=== PATIENT | male | born 1955 | race Caucasian/White ===

== ENCOUNTER → 2021-09-17 17:16 | Outpatient (CLI) | payer OTHER, SELFPAY ==
[2021-09-17 18:28] LABS: Hemoglobin A1C% w Est Avg Glu 8.8 % (4.0-6.0)
== END ==
PROVIDERS: PCP Family Medicine; Referring Provider Family Medicine; Visit Provider Family Medicine
DX: E78.2 Mixed hyperlipidemia (principal); E11.9 Type 2 diabetes mellitus without complications
CPT/HCPCS: 36415; 83036

== ENCOUNTER → 2022-02-21 12:35 | Outpatient (CLI) | payer OTHER, SELFPAY ==
[2022-02-21 13:36] LABS: Hemoglobin A1C% w Est Avg Glu 9.2 % (4.0-6.0)
[2022-02-21 13:41] LABS: Alanine Aminotransferase 23 IU/L (<50); Albumin 4.6 g/dL (3.5-5.0); Albumin Globulin Ratio 1.8 (1.0-2.8); Alkaline Phosphatase 68 U/L (38-126); Aspartate Aminotransferase 27 IU/L (17-59); BUN Creatinine Ratio 28.3 (6-22); Bilirubin Total 0.3 mg/dL (0.2-1.3); Blood Urea Nitrogen 17 mg/dL (9-20); Calcium 8.9 mg/dL (8.4-10.2); Carbon Dioxide 29 mmol/L (22-32); Chloride 101 mmol/L (98-107); Cholesterol 120 mg/dL (140-199); Estimated Glomerular Filt Rate > 60 mL/min (>60); Globulin 2.6 g/dL (1.7-4.1); Glucose 163 mg/dL (80-110); HDL Cholesterol 52 mg/dL (40-60); HEMOLYSIS < 15 (0-50); LDL Cholesterol Calculated 40 mg/dL (<100); Sodium 138 mmol/L (137-145); Total Protein 7.2 g/dL (6.3-8.2); Triglycerides 141 mg/dL (35-150)
== END ==
PROVIDERS: PCP Family Medicine; Referring Provider Family Medicine; Visit Provider Family Medicine
DX: E11.9 Type 2 diabetes mellitus without complications (principal); E78.5 Hyperlipidemia, unspecified; I10 Essential (primary) hypertension
CPT/HCPCS: 36415; 80053; 80061; 83036

== ENCOUNTER → 2022-06-02 10:20 | Outpatient (CLI) | payer MEDICARE, OTHER, SELFPAY ==
[2022-06-02 13:57] LABS: Prostate Specific Antigen Scrn 1.68 ng/mL (0.1-4.0)
[2022-06-02 15:06] LABS: Creatinine Urine Random 58.9 mg/dL
[2022-06-02 15:10] LABS: Microalbumi Creatinin Ratio Ur 25.4 ug/mg CR (<30); Microalbumin Urine Random 1.5 mg/dL (0-1.6)
== END ==
PROVIDERS: PCP Family Medicine; Referring Provider Family Medicine; Visit Provider Family Medicine
DX: E11.9 Type 2 diabetes mellitus without complications (principal); Z12.5 Encounter for screening for malignant neoplasm of prostate; I10 Essential (primary) hypertension; E78.2 Mixed hyperlipidemia
CPT/HCPCS: 36415; 82043; 82570; 83036; G0103

== ENCOUNTER → 2022-08-30 07:02 | Outpatient (CLI) | payer MEDICARE, SELFPAY ==
[2022-08-30 07:53] LABS: Hemoglobin A1C% w Est Avg Glu 8.4 % (4.0-6.0)
[2022-08-30 08:06] LABS: Alanine Aminotransferase 24 IU/L (<50); Albumin 4.6 g/dL (3.5-5.0); Albumin Globulin Ratio 1.8 (1.0-2.8); Alkaline Phosphatase 68 U/L (38-126); Aspartate Aminotransferase 22 IU/L (17-59); Bilirubin Total 0.4 mg/dL (0.2-1.3); Blood Urea Nitrogen 20 mg/dL (9-20); Calcium 8.8 mg/dL (8.4-10.2); Carbon Dioxide 27 mmol/L (22-32); Chloride 100 mmol/L (98-107); Cholesterol 102 mg/dL (140-199); Estimated Glomerular Filt Rate > 60 mL/min (>60); Globulin 2.6 g/dL (1.7-4.1); Glucose 181 mg/dL (80-110); HDL Cholesterol 44 mg/dL (40-60); HEMOLYSIS < 15 (0-50); LDL Cholesterol Calculated 39 mg/dL (<100); Sodium 138 mmol/L (137-145); Total Protein 7.2 g/dL (6.3-8.2); Triglycerides 97 mg/dL (35-150)
[2022-08-30 08:41] LABS: Creatinine Urine Random 59.5 mg/dL
[2022-08-30 08:45] LABS: Microalbumi Creatinin Ratio Ur 18.4 ug/mg CR (<30); Microalbumin Urine Random 1.1 mg/dL (0-1.6)
== END ==
PROVIDERS: PCP Family Medicine; Referring Provider Family Medicine; Visit Provider Family Medicine
DX: E11.9 Type 2 diabetes mellitus without complications (principal); E78.2 Mixed hyperlipidemia; I10 Essential (primary) hypertension
CPT/HCPCS: 36415; 80053; 80061; 82043; 82570; 83036

== ENCOUNTER → 2022-09-05 10:20 | Outpatient (CLI) | payer MEDICARE, SELFPAY ==
[2022-09-05 13:52] LABS: COVID19 -Nasal RAPID Negative (Negative)
== END ==
PROVIDERS: PCP Family Medicine; Visit Provider Surgery
DX: Z20.822 Contact with and (suspected) exposure to COVID-19 (principal); Z01.812 Encounter for preprocedural laboratory examination
CPT/HCPCS: 87635; C9803

== ENCOUNTER 2022-09-06 13:26 | Day surgery (SDC) | payer MEDICARE, SELFPAY ==
[2022-09-06 14:05] VITALS: BP 128/76; PULSE 81; RESP 16; TEMP 36.3; O2SAT 100; BMI 25.7
[2022-09-06] MEDS: LACTATED RINGERS 1,000 ML 200 ML IV (14:20)
--- NOTE | 2022-09-06 14:55 | P.HP_ITS ---
History of Present Illness History of Present Illness Date Patient Seen: 09/06/22 Time Patient Seen: 14:55 Chief complaint: Colonoscopy Narrative: The patient presents for colorectal screening. Previous colonoscopy 6 years ago normal.. No personal or family history of colon cancer. He reports that over the past 6 months he is developed significant constipation and now is on a regimen of Metamucil and stool softeners. No blood per rectum no unintentional weight loss or abdominal pain. Patient History Medical History Chicken pox (~1964) Chronic back pain (~1994) Constipation Diabetes mellitus (~2006) Hearing loss (~2009) [place] (hard of hearing) Hyperlipidemia Hypertension (~2006) Low testosterone (~2012) Shoulder pain (~2005) Sleep apnea (~2009) Tinnitus Surgical History Anesthesia History of surgery (~2005) Family & Social History Family History Father Diabetes mellitus History of heart disease Hypertension Hyperlipidemia Stroke Mother History of heart disease Grandfather History of heart disease Grandfather History of heart disease Grandmother Colon cancer Social History: household members spouse Tobacco & Substance use: Smoking Status Never smoker alcohol intake current alcohol intake frequency a few times a week Substance Use Type does not use Meds Home Medications and Allergies Home Medications Medication Instructions Recorded Confirmed Type empagliflozin 25 mg tablet 25 mg PO DAILY #90 tabs 06/02/22 09/06/22 Rx (Jardiance) lisinopril 2.5 mg tablet 2.5 mg PO DAILY #90 tabs 06/09/22 09/06/22 Rx metformin 500 mg tablet 1,000 mg PO BID #180 tabs 06/09/22 09/06/22 Rx rosuvastatin 20 mg tablet 20 mg PO DAILY #90 tabs 06/09/22 09/06/22 Rx liraglutide 0.6 mg/0.1 mL (18 mg/3 1.8 mg (0.3 mL) SUBCUT DAILY #9 mL 07/15/22 09/06/22 Rx mL) subcutaneous pen injector (Victoza 3-Casimiro) sodium,potassium,mag sulfates 17.5 See Rx Instructions PO .COMPLEX 08/24/22 09/06/22 Rx gram-3.13 gram-1.6 gram oral soln #354 mL (Suprep Bowel Prep Kit) Allergies Allergy/AdvReac Type Severity Reaction Status Date / Time No Known Drug Allergies Allergy Verified 09/06/22 14:02 Exam Vital Signs (past 8 hours): - 09/06/22 14:05 Temperature 97.4 F L Pulse Rate 81 Respiratory Rate 16 Blood Pressure 128/76 Pulse Oximetry 100 Oxygen Delivery Method Room Air Oxygen Delivery Method Room Air Narrative Exam Narrative: General adult male alert oriented no acute distress Abdomen soft nontender nondistended Assessment & Plan Assessment & Plan narrative: The patient requires colorectal screening and colonoscopy is recommended. Technical details were discussed. Risks, benefits, alternatives explained. Risks including but not limited to myocardial infarction, aspiration, bleeding, pain, missed lesion, incomplete examination, need for further radiographic studies, colonic perforation, and need for major abdominal surgery were d iscussed. All questions were answered to their satisfaction, and they are in agreement with this plan. Time Spent With Patient Critical Care time: I spent a total of [] minutes of critical care time on this patient's care today; this time is exclusive of procedural time.
--- NOTE | 2022-09-06 14:56 | PM.OP.COLON ---
Operative Date/Time/Diagnoses Date of procedure: 09/06/22 Time of procedure: 14:56 Pre-op diagnosis: Screening colonoscopy Post-op diagnosis: same Procedure & Clinicians Study performed: Aborted Colonoscopy Same procedure as scheduled: Yes Indications: Screening Surgeon: Cristian Landaverde Procedure Notes Procedure in detail: The history and physical was performed/updated and the patient is ASA class is 2. The procedure was discussed in detail with the patient. Potential risks complications including infection, bleeding, missed diagnosis, perforation, need for surgery, and were explained. Their questions were answered and informed consent was obtained. Patient was brought to the procedure room and placed standard monitoring equipment. The patient's vital signs were monitored continuously throughout the entire procedure. Prior to starting time-out was performed. The patient was placed in the left lateral recumbent position. Procedural sedation was administered by anesthesia. Examination began with a thorough inspection of the perianal area there was no evidence of fissures, fistulae, external hemorrhoids or cutaneous malignancy. The colonoscopy scope was then placed into the anal canal and was advanced forward. There was a significant amount of stool within the colon. Despite irrigation the visualization was inadequate for safe performance of this procedure. Procedure was subsequently aborted Post-procedure Plan for aftercare: Surgical office contact you to reschedule colonoscopy. Disposition: same day surgery
[2022-09-06 15:32] VITALS: BP 109/73; PULSE 78; RESP 17; TEMP 36.6; O2SAT 96
[2022-09-06 15:37] VITALS: BP 119/69; PULSE 79; RESP 23; O2SAT 97
[2022-09-06 15:41] VITALS: BP 131/72; PULSE 73; RESP 14; O2SAT 95
== END 2022-09-06 16:20 | disposition home or self-care (01) ==
PROVIDERS: PCP Family Medicine; Referring Provider Surgery; Visit Provider Surgery
PROC: 0DJD8ZZ Inspection of Lower Intestinal Tract, Via Natural or Artificial Opening Endoscopic (ICD-10-PCS; CPT 45378; principal; 2022-09-06 14:45)
DX: Z12.11 Encounter for screening for malignant neoplasm of colon (principal); Z53.8 Procedure and treatment not carried out for other reasons
CPT/HCPCS: G0121; J3010

== ENCOUNTER → 2022-10-24 10:14 | Outpatient (CLI) | payer MEDICARE, SELFPAY ==
[2022-10-24 14:31] LABS: COVID19 -Nasal RAPID Negative (Negative)
== END ==
PROVIDERS: PCP Family Medicine; Visit Provider Surgery
DX: Z20.822 Contact with and (suspected) exposure to COVID-19 (principal); Z01.812 Encounter for preprocedural laboratory examination
CPT/HCPCS: 87635; C9803

== ENCOUNTER 2022-10-25 08:19 | Day surgery (SDC) | payer MEDICARE, SELFPAY ==
[2022-10-25 08:53] VITALS: BMI 25.7
[2022-10-25 09:07] VITALS: BP 125/72; PULSE 78; RESP 16; TEMP 36.5; O2SAT 98
--- NOTE | 2022-10-25 09:12 | SUR.PREOP ---
Dr Landaverde notified at bedside that pt with still some cloudy stool. See order for Fleets Enema.
--- NOTE | 2022-10-25 09:17 | PM.HP.1 ---
History of Present Illness History of Present Illness Date Patient Seen: 10/25/22 Time Patient Seen: 09:17 Chief complaint: Colonoscopy Narrative: The patient presents for colorectal screening. Previously normal colonoscopy 5 years ago. He would an attempted colonoscopy last month which was aborted secondary to inadequate prep. No personal or family history of colon cancer. He has chronic constipation. Patient History Medical History Chicken pox (~1964) Chronic back pain (~1994) Constipation Diabetes mellitus (~2006) Hearing loss (~2009) [place] (hard of hearing) Hyperlipidemia Hypertension (~2006) Low testosterone (~2012) Shoulder pain (~2005) Sleep apnea (~2009) Tinnitus Surgical History Anesthesia History of surgery (~2005) Family & Social History Family History Father Diabetes mellitus History of heart disease Hypertension Hyperlipidemia Stroke Mother History of heart disease Grandfather History of heart disease Grandfather History of heart disease Grandmother Colon cancer Social History: household members spouse Tobacco & Substance use: Smoking Status Never smoker alcohol intake current alcohol intake frequency a few times a week Substance Use Type does not use Meds Home Medications and Allergies Home Medications Medication Instructions Recorded Confirmed Type lisinopril 2.5 mg tablet 2.5 mg PO DAILY #90 tabs 06/09/22 10/25/22 Rx metformin 500 mg tablet 1,000 mg PO BID #180 tabs 06/09/22 10/25/22 Rx rosuvastatin 20 mg tablet 20 mg PO DAILY #90 tabs 06/09/22 10/25/22 Rx liraglutide 0.6 mg/0.1 mL (18 mg/3 1.8 mg (0.3 mL) SUBCUT DAILY #27 mL 10/06/22 10/25/22 Rx mL) subcutaneous pen injector (Victoza 3-Casimiro) empagliflozin 25 mg tablet 25 mg PO DAILY #90 tabs 10/11/22 10/25/22 Rx (Jardiance) Allergies Allergy/AdvReac Type Severity Reaction Status Date / Time No Known Drug Allergies Allergy Verified 10/25/22 08:44 Exam Vital Signs (past 8 hours): - 10/25/22 09:07 Temperature 97.7 F Pulse Rate 78 Respiratory Rate 16 Blood Pressure 125/72 Pulse Oximetry 98 Oxygen Delivery Method Room Air Oxygen Delivery Method Room Air Narrative Exam Narrative: General adult man alert oriented no acute distress Abdomen soft nontender nondistended Assessment & Plan Assessment & Plan narrative: The patient requires colorectal screening and colonoscopy is recommended. Technical details were discussed. Risks, benefits, alternatives explained. Risks including but not limited to myocardial infarction, aspiration, bleeding, pain, missed lesion, incomplete examination, need for further radiographic studies, colonic perforation, and need for major abdominal surgery were discussed. All questions were answered to their satisfaction, and they are in agreement with this plan. Time Spent With Patient Critical Care time: I spent a total of [] minutes of critical care time on this patient's care today; this time is exclusive of procedural time.
--- NOTE | 2022-10-25 09:18 | PM.OP.COLON ---
Operative Date/Time/Diagnoses Date of procedure: 10/25/22 Time of procedure: 09:19 Pre-op diagnosis: Colorectal screening Post-op diagnosis: same Procedure & Clinicians Study performed: Colonoscopy Same procedure as scheduled: Yes Indications: Colorectal screening Surgeon: Cristian Landaverde Procedure Notes Procedure in detail: The history and physical was performed/updated and the patient is ASA class is 2. The procedure was discussed in detail with the patient. Potential risks complications including infection, bleeding, missed diagnosis, perforation, need for surgery, and were explained. Their questions were answered and informed consent was obtained. Patient was brought to the procedure room and placed standard monitoring equipment. The patient's vital signs were monitored continuously throughout the entire procedure. Prior to starting time-out was performed. The patient was placed in the left lateral recumbent position. Procedural sedation was administered by anesthesia. Examination began with a thorough inspection of the perianal area there was no evidence of fissures, fistulae, external hemorrhoids or cutaneous malignancy. The colonoscopy scope was then placed into the anal canal and was advanced to the cecum, which was identified by the ileocecal valve, the appendiceal orifice and the confluence of the taenia. The scope was then slowly withdrawn examining colon thoroughly in all directions, irrigating it of any residual stool. FINDINGS 1. No masses or polyps 2. Diverticulosis mild 3. Prep fair The patient tolerated the procedure well. They will be discharged once criteria are met. The withdrawl time was 8 minutes. Specimen(s): none sent Complications: none Impression: Normal colonoscopy Post-procedure Recommendations: Colonoscopy in 10 years and High fiber diet Disposition: same day surgery
[2022-10-25] MEDS: FLEETS ENEMA 1 EACH PR (09:23)
--- NOTE | 2022-10-25 09:36 | SUR.OPER ---
HEARINGS AIDS PRESENT IN BOTH EARS.
[2022-10-25 10:03] VITALS: BP 91/62; PULSE 96; RESP 17; TEMP 36.1; O2SAT 98
[2022-10-25 10:08] VITALS: BP 106/58; PULSE 79; RESP 14; O2SAT 98
--- NOTE | 2022-10-25 10:31 | SUR.PHASEII ---
1030: Pt A&Ox4, denies any distress, VSS, abdomen soft, and ready to discharge home. Discharge instructions reviewed with patient with time allowed for questions. Pt used bathroom, IV DC'd intact. Pt left unit via w\c to ED entrance to meet spouse who will discharge pt home.
== END 2022-10-25 10:33 | disposition home or self-care (01) ==
PROVIDERS: PCP Family Medicine; Referring Provider Surgery; Visit Provider Surgery
PROC: 0DJD8ZZ Inspection of Lower Intestinal Tract, Via Natural or Artificial Opening Endoscopic (ICD-10-PCS; CPT 45378; principal; 2022-10-25 09:15)
DX: Z12.11 Encounter for screening for malignant neoplasm of colon (principal); K57.30 Diverticulosis of large intestine without perforation or abscess without bleeding
CPT/HCPCS: 45378; J2704

== ENCOUNTER → 2023-02-28 08:39 | Outpatient (CLI) | payer MEDICARE, SELFPAY ==
[2023-02-28 09:53] LABS: Add Manual Diff / Slide Review NO; Basophils Absolute Auto 100 /uL (0-100); Basophils Percent Auto 1.1 % (0-2); Eosinophils Absolute Auto 200 /uL (0-450); Eosinophils Percent Auto 3.1 % (2-4); Hematocrit 43.8 % (41-53); Hemoglobin 14.9 g/dL (13.5-17.5); Lymphocytes Absolute Auto 1600 /uL (1100-4500); Lymphocytes Percent Auto 29.6 % (25-40); Mean Corpuscular Hemoglobin 30.2 PG (26-34); Mean Corpuscular Volume 88.6 fL (80-100); Monocytes Absolute Auto 400 /uL (0-900); Monocytes Percent Auto 6.8 % (3-14); Neutrophils Absolute Auto 3300 /uL (1500-7000); Neutrophils Percent Auto 59.4 % (50-75); Platelet Count 183 X10^3/uL (150-400); Red Blood Cell Count 4.95 X10^6/uL (4.5-5.9); Red Cell Distribution Width 13.9 % (11.6-14.8); White Blood Cell Count 5.5 X10^3/uL (4.5-11.0)
[2023-02-28 10:27] LABS: Alanine Aminotransferase 26 IU/L (<50); Albumin 4.5 g/dL (3.5-5.0); Albumin Globulin Ratio 1.9 (1.0-2.8); Alkaline Phosphatase 78 U/L (38-126); Aspartate Aminotransferase 24 IU/L (17-59); BUN Creatinine Ratio 27.3 (6-22); Bilirubin Total 0.6 mg/dL (0.2-1.3); Blood Urea Nitrogen 15 mg/dL (9-20); Calcium 9.2 mg/dL (8.4-10.2); Carbon Dioxide 28 mmol/L (22-32); Chloride 100 mmol/L (98-107); Cholesterol 116 mg/dL (140-199); Estimated Glomerular Filt Rate > 60 mL/min (>60); Globulin 2.4 g/dL (1.7-4.1); Glucose 175 mg/dL (80-110); HDL Cholesterol 51 mg/dL (40-60); HEMOLYSIS < 15 (0-50); LDL Cholesterol Calculated 45 mg/dL (<100); Potassium 4.4 mmol/L (3.4-5.1); Sodium 136 mmol/L (137-145); Total Protein 6.9 g/dL (6.3-8.2); Triglycerides 100 mg/dL (35-150)
[2023-03-01 03:14] LABS: Labcorp Hemoglobin (Hb) A1c 8.7 % (4.8-5.6)
== END ==
PROVIDERS: PCP Family Medicine; Referring Provider Family Medicine; Visit Provider Family Medicine
DX: E78.5 Hyperlipidemia, unspecified (principal); I10 Essential (primary) hypertension; E11.9 Type 2 diabetes mellitus without complications
CPT/HCPCS: 36415; 80053; 80061; 83036; 85025

== ENCOUNTER → 2023-06-02 14:14 | Outpatient (CLI) | payer MEDICARE, SELFPAY ==
[2023-06-02 16:08] LABS: Alanine Aminotransferase 23 IU/L (<50); Albumin 3.9 g/dL (3.5-5.0); Albumin Globulin Ratio 1.7 (1.0-2.8); Alkaline Phosphatase 79 U/L (38-126); Aspartate Aminotransferase 21 IU/L (17-59); Bilirubin Total 0.3 mg/dL (0.2-1.3); Blood Urea Nitrogen 21 mg/dL (9-20); Calcium 8.5 mg/dL (8.4-10.2); Carbon Dioxide 26 mmol/L (22-32); Chloride 96 mmol/L (98-107); Estimated Glomerular Filt Rate > 60 mL/min (>60); Globulin 2.3 g/dL (1.7-4.1); Glucose 374 mg/dL (80-110); HEMOLYSIS < 15 (0-50); Potassium 4.4 mmol/L (3.4-5.1); Sodium 132 mmol/L (137-145); Total Protein 6.2 g/dL (6.3-8.2)
[2023-06-02 18:52] LABS: Hemoglobin A1C% w Est Avg Glu 9.8 % (4.0-6.0)
== END ==
PROVIDERS: PCP Family Medicine; Referring Provider Family Medicine; Visit Provider Family Medicine
DX: E11.9 Type 2 diabetes mellitus without complications (principal); E78.5 Hyperlipidemia, unspecified; I10 Essential (primary) hypertension
CPT/HCPCS: 36415; 80053; 83036

== ENCOUNTER → 2023-06-06 09:09 | Outpatient (CLI) | payer MEDICARE, SELFPAY ==
[2023-06-06 10:31] LABS: Add Manual Diff / Slide Review NO; Basophils Absolute Auto 0 /uL (0-100); Basophils Percent Auto 0.8 % (0-2); Eosinophils Absolute Auto 100 /uL (0-450); Eosinophils Percent Auto 2.7 % (2-4); Hematocrit 40.8 % (41-53); Hemoglobin 13.8 g/dL (13.5-17.5); Lymphocytes Absolute Auto 1300 /uL (1100-4500); Lymphocytes Percent Auto 25.3 % (25-40); Mean Corpuscular HGB Conc 33.8 % (30-36); Monocytes Absolute Auto 300 /uL (0-900); Monocytes Percent Auto 6.3 % (3-14); Neutrophils Absolute Auto 3300 /uL (1500-7000); Neutrophils Percent Auto 64.9 % (50-75); Platelet Count 185 X10^3/uL (150-400); Red Blood Cell Count 4.58 X10^6/uL (4.5-5.9); Red Cell Distribution Width 13.5 % (11.6-14.8); White Blood Cell Count 5.1 X10^3/uL (4.5-11.0)
[2023-06-06 10:40] LABS: Hemoglobin A1C% w Est Avg Glu 9.8 % (4.0-6.0)
[2023-06-06 10:58] LABS: Alanine Aminotransferase 22 IU/L (<50); Albumin 4.2 g/dL (3.5-5.0); Albumin Globulin Ratio 1.8 (1.0-2.8); Alkaline Phosphatase 84 U/L (38-126); Aspartate Aminotransferase 21 IU/L (17-59); BUN Creatinine Ratio 30.4 (6-22); Bilirubin Total 0.4 mg/dL (0.2-1.3); Blood Urea Nitrogen 14 mg/dL (9-20); Calcium 9.2 mg/dL (8.4-10.2); Carbon Dioxide 26 mmol/L (22-32); Chloride 100 mmol/L (98-107); Cholesterol 115 mg/dL (140-199); Estimated Glomerular Filt Rate > 60 mL/min (>60); Globulin 2.3 g/dL (1.7-4.1); Glucose 272 mg/dL (80-110); HDL Cholesterol 48 mg/dL (40-60); HEMOLYSIS < 15 (0-50); LDL Cholesterol Calculated 37 mg/dL (<100); Potassium 4.2 mmol/L (3.4-5.1); Sodium 135 mmol/L (137-145); Total Protein 6.5 g/dL (6.3-8.2); Triglycerides 151 mg/dL (35-150)
[2023-06-06 11:25] LABS: Prostate Specific Antigen Scrn 1.44 ng/mL (0.1-4.0)
== END ==
PROVIDERS: PCP Family Medicine; Referring Provider Family Medicine; Visit Provider Family Medicine
DX: E11.9 Type 2 diabetes mellitus without complications (principal); Z12.5 Encounter for screening for malignant neoplasm of prostate; E78.5 Hyperlipidemia, unspecified; I10 Essential (primary) hypertension
CPT/HCPCS: 36415; 80053; 80061; 83036; 85025; G0103

== ENCOUNTER → 2023-09-27 09:39 | Outpatient (CLI) | payer MEDICARE, SELFPAY ==
[2023-09-27 10:38] LABS: Microalbumi Creatinin Ratio Ur 16.1 ug/mg CR (<30)
[2023-09-27 10:38] LABS: Hemoglobin A1C% w Est Avg Glu 7.9 % (4.0-6.0)
== END ==
PROVIDERS: PCP Family Medicine; Referring Provider Family Medicine; Visit Provider Family Medicine
DX: E11.9 Type 2 diabetes mellitus without complications (principal); I10 Essential (primary) hypertension
CPT/HCPCS: 36415; 82043; 82570; 83036

== ENCOUNTER → 2023-12-21 11:12 | Outpatient (CLI) | payer MEDICARE, SELFPAY ==
[2023-12-21 12:26] LABS: Hemoglobin A1C% w Est Avg Glu 8.1 % (4.0-6.0)
[2023-12-21 12:47] LABS: Alanine Aminotransferase 22 IU/L (<50); Albumin 4.6 g/dL (3.5-5.0); Albumin Globulin Ratio 1.6 (1.0-2.8); Alkaline Phosphatase 73 U/L (38-126); Aspartate Aminotransferase 43 IU/L (17-59); BUN Creatinine Ratio 25.9 (6-22); Bilirubin Total 0.6 mg/dL (0.2-1.3); Blood Urea Nitrogen 15 mg/dL (9-20); Calcium 9.5 mg/dL (8.4-10.2); Carbon Dioxide 30 mmol/L (22-32); Chloride 105 mmol/L (98-107); Estimated Glomerular Filt Rate > 60 mL/min (>60); Globulin 2.8 g/dL (1.7-4.1); Glucose 146 mg/dL (80-110); HEMOLYSIS 20 (0-50); Potassium 4.1 mmol/L (3.4-5.1); Sodium 139 mmol/L (137-145); Total Protein 7.4 g/dL (6.3-8.2)
== END ==
PROVIDERS: PCP Family Medicine; Referring Provider Family Medicine; Visit Provider Family Medicine
DX: E11.9 Type 2 diabetes mellitus without complications (principal); I10 Essential (primary) hypertension; E78.5 Hyperlipidemia, unspecified
CPT/HCPCS: 36415; 80053; 83036

== ENCOUNTER → 2024-02-20 13:18 | Outpatient (CLI) | payer MEDICARE, SELFPAY ==
--- NOTE | 2024-04-16 12:52 | DIAB.MNT ---
Initial Diabetes Medical Nutrition Therapy Assessment Name: Sabino Love Date: 02/20/24 Time: 130-230p Dx: Type II Diabetes Preferred Learning Style: Listening/watching Sabino presents for initial Dm visit. Reports PMH of Dm x 15+ years. Endorses family hx T2Dm as well. Has a goal of hgA1c under 7.1%, though last was 8.1%, up from previous 7.9%. Reports DSME in 1997 when first diagnosed. States he had been inconsistent with daily GLP1 due to cost. Reports lots of camping and boating. Notes diet changes during trips. Has questions regarding heart health nutrition. Avoids cheese due to constipation. Describes himself as a chronic snacker. Interested in sample CGM. Diet recall: 630a: Belvita gilbert crackers and black coffee 830a: egg, boggs, half eng muffin or 3 corn tortillas 12p: chicken soup OR Palmer sandwich on ww with veggies +/- chips 2-3p: berries, melon x 1c 6p: protein x 6-8oz with potatoes and veggies OR low CHO tortillas and veg 730p: 3/4c cheerios and milk OR low kcal yogurt OR popcorn Anthropometrics: Ht: 6'2 Wt: 203# 12/2023 Physical Activity: 3-5 days per week walking 2-2.5 mi, gardening/yardwork, swimming infrequently Self-Monitoring Blood Glucose: Infrequent checks for FBG or after a meal, FBG often 140s per report, one reported BG after feeling tired postprandial of 230mg/dl. Diabetes Medications: 25mg Jardiance 1000mg Metformin BID 1mg ozempic Pertinent Labs: HGA1c: 9.8% 06/2023 7.9% 09/2023 8.1% 12/2023 Past Medical History: (Last Updated 03/26/24 @ 09:41 by Saran Ramey MD) Chicken pox (~1964) Chronic back pain (~1994) Constipation Diabetes mellitus (~2006) Type II Hearing loss (~2009) [place] (hard of hearing) bilat hearing aids Hyperlipidemia Hypertension (~2006) Low testosterone (~2012) Shoulder pain (~2005) Sleep apnea (~2009) Tinnitus Childhood Type 2 diabetes mellitus with other specified complication Nutrition Rx: Carbohydrates: Meal:45g Snack:15-30g Nutrition Diagnosis: - Food and nutrition knowledge deficit r/t limited MNT aeb pt report and diet recall - Self monitoring deficit r/t inconsistent BG checks aeb pt report Intervention: This participant was very receptive. Provided appropriate educational handouts. Discussed the following topics: Completed intake assessment. Discussed barriers to care. HgA1c, its correlation to blood glucose numbers, and rationale for goal Importance of self-monitoring, how often, and when to check. Suggested checking at different times to evaluate meals. Reviewed CGM as a resource. Reviewed CGM use and equipment Discussed when to check blood sugars using finger stick Reviewed high and low blood sugar signs/symptoms and treatment options Provided education for self-administration of CGM placement Educated patient on alarm settings Discussed when to replace equipment and disposal Plate Method, impact of macronutrients on blood sugar, meal timing, carbohydrate counting, pairing macronutrients and spreading out carbohydrates for better blood glucose management Recommended servings for carbohydrates at meals and snacks Heart health nutrition Role of physical activity and following provider guidelines for safety Created SMART goals for patient self-care and success. Goals: Pair CHO and protein at meals and snack Wear CGM x 14 days Follow-up: ARIES JASON follow-up in 3-4 weeks Maribel Jones RDN, CASIE Certified Diabetes Care and Arc Welder P: [phone] Thank you for this referral
== END ==
PROVIDERS: PCP Family Medicine; Referring Provider Family Medicine
DX: E11.9 Type 2 diabetes mellitus without complications (principal); I10 Essential (primary) hypertension; E78.5 Hyperlipidemia, unspecified; Z71.3 Dietary counseling and surveillance
CPT/HCPCS: 97802

== ENCOUNTER → 2024-03-25 08:26 | Outpatient (CLI) | payer MEDICARE, SELFPAY ==
[2024-03-25 09:28] LABS: Hemoglobin A1C% w Est Avg Glu 7.4 % (4.0-6.0)
[2024-03-25 09:50] LABS: Alanine Aminotransferase 23 IU/L (<50); Albumin 4.3 g/dL (3.5-5.0); Albumin Globulin Ratio 1.9 (1.0-2.8); Alkaline Phosphatase 65 U/L (38-126); Aspartate Aminotransferase 24 IU/L (17-59); Bilirubin Total 0.5 mg/dL (0.2-1.3); Blood Urea Nitrogen 18 mg/dL (9-20); Calcium 9.1 mg/dL (8.4-10.2); Carbon Dioxide 27 mmol/L (22-32); Chloride 106 mmol/L (98-107); Estimated Glomerular Filt Rate > 60 mL/min (>60); Globulin 2.3 g/dL (1.7-4.1); Glucose 145 mg/dL (80-110); HEMOLYSIS < 15 (0-50); Potassium 4.5 mmol/L (3.4-5.1); Sodium 137 mmol/L (137-145); Total Protein 6.6 g/dL (6.3-8.2)
[2024-03-25 10:25] LABS: TSH w/ Reflex to FT4 1.23 uIU/mL (0.47-4.68)
== END ==
PROVIDERS: PCP Family Medicine; Referring Provider Family Medicine; Visit Provider Family Medicine
DX: E78.5 Hyperlipidemia, unspecified (principal); E11.9 Type 2 diabetes mellitus without complications; I10 Essential (primary) hypertension
CPT/HCPCS: 36415; 80053; 83036; 84443

== ENCOUNTER → 2024-04-16 13:05 | Outpatient (CLI) | payer MEDICARE, SELFPAY ==
--- NOTE | 2024-04-16 13:10 | DIAB.MNTFU ---
Follow-up Diabetes Medical Nutrition Therapy Assessment Name: Sabino Love Date: 04/16/24 Time: 1:10- Dx: Type II Diabetes Sabino presents for Dm follow-up. Did notice some discrepancies in CGM vs finger stick. Financial concerns with [facility] and coverage for insurance at this point in the year. Discussed meds with PCP and plans to go back on Victoza. [place] having pretty significant constipation. Sounds like he needs a prior auth for Victoza. Reduced CHO at breakfast. Also reduced HS CHO, ie cheerios before bed. Is feeling hungry in the evening prior to bed lately. Reports some higher red meat intake. Reports 2c fruit at snacks. Using low CHO options, ie tortillas. Using higher fiber options. Anthropometrics: Ht: 6'2 Wt: 203# 12/2023 Physical Activity: 3-5 days per week walking 2-2.5 mi, gardening/yardwork, swimming infrequently. Just got a new dog and plans to walk more. Self-Monitoring Blood Glucose: Wore a CGM sensor and found this to be moderately helpful. Noticed potential anusha phenomenon with increase in BG early in the morning. Per reports, pretty consistent hypergycemia, though low variability. Plans to switch to Victoza, may benefit from higher dose given hyperglycemia. TIme in Range: 11% very high 53% high 36% in range 0% low av mg/dl GMI: 8% variability 19.1% Diabetes Medications: 25mg Jardiance 1000mg Metformin BID 1mg ozempic Pertinent Labs: HGA1c: 9.8% 06/2023 7.9% 09/2023 8.1% 12/2023 7.4% 03/2024 Past Medical History: (Last Updated 03/26/24 @ 09:41 by Saran Ramey MD) Chicken pox (~1964) Chronic back pain (~1994) Constipation Diabetes mellitus (~2006) Type II Hearing loss (~2009) [place] (hard of hearing) bilat hearing aids Hyperlipidemia Hypertension (~2006) Low testosterone (~2012) Shoulder pain (~2005) Sleep apnea (~2009) Tinnitus Childhood Type 2 diabetes mellitus with other specified complication Nutrition Rx: Carbohydrates: Meal:45g Snack:15g Nutrition Diagnosis: - Food and nutrition knowledge deficit r/t limited MNT aeb pt report and diet recall- improved - Self monitoring deficit r/t inconsistent BG checks aeb pt report- improved - Inconsistent protein intake r/t lack of pairing at snacks aeb diet recall Intervention: This participant was very receptive. Provided appropriate educational handouts. Discussed the following topics: Blood sugar review and trends. Impact of food intake and state of DM on results. Heart health nutrition: fats Fat choices and proteins Pairing review for BG managment Encouraged discussion with provider if FBG continue above goal Potential for higher dose GLP1 Physical activity plan and progress Created SMART goals for patient self-care and success. Goals: Pair CHO and protein at meals and snack- 50% met Wear CGM x 14 days - met Add protein to snacks- new Keep fruit to 1c at snacks- new Follow-up: ARIES JASON follow-up prn per pt req and provided him with copy of CGM report. Encouraged him to call or message with any f/u needs or questions. Maribel Jones, ARIES, CASIE Certified Diabetes Care and Zinc Skimmer P: [phone] Thank you for this referral
== END ==
PROVIDERS: PCP Family Medicine; Referring Provider Family Medicine
DX: E11.9 Type 2 diabetes mellitus without complications (principal); Z71.3 Dietary counseling and surveillance; Z79.84 Long term (current) use of oral hypoglycemic drugs; Z79.85 Long-term (current) use of injectable non-insulin antidiabetic drugs
CPT/HCPCS: 97803

== ENCOUNTER → 2024-06-24 09:34 | Outpatient (CLI) | payer MEDICARE, SELFPAY ==
[2024-06-24 10:33] LABS: Add Manual Diff / Slide Review NO; Basophils Absolute Auto 0 /uL (0-100); Basophils Percent Auto 0.7 % (0-2); Eosinophils Absolute Auto 200 /uL (0-450); Eosinophils Percent Auto 2.7 % (2-4); Hematocrit 42.4 % (41-53); Hemoglobin 14.3 g/dL (13.5-17.5); Lymphocytes Absolute Auto 1400 /uL (1100-4500); Lymphocytes Percent Auto 23.3 % (25-40); Mean Corpuscular HGB Conc 33.8 % (30-36); Mean Corpuscular Volume 88.9 fL (80-100); Monocytes Absolute Auto 400 /uL (0-900); Monocytes Percent Auto 5.8 % (3-14); Neutrophils Absolute Auto 4200 /uL (1500-7000); Neutrophils Percent Auto 67.5 % (50-75); Platelet Count 192 X10^3/uL (150-400); Red Blood Cell Count 4.77 X10^6/uL (4.5-5.9); Red Cell Distribution Width 14.6 % (11.6-14.8); White Blood Cell Count 6.2 X10^3/uL (4.5-11.0)
[2024-06-24 10:47] LABS: Hemoglobin A1C% w Est Avg Glu 8.1 % (4.0-6.0)
[2024-06-24 10:48] LABS: Alanine Aminotransferase 20 IU/L (<50); Albumin 4.4 g/dL (3.5-5.0); Albumin Globulin Ratio 1.9 (1.0-2.8); Alkaline Phosphatase 71 U/L (38-126); Aspartate Aminotransferase 26 IU/L (17-59); BUN Creatinine Ratio 25.5 (6-22); Bilirubin Total 0.6 mg/dL (0.2-1.3); Blood Urea Nitrogen 14 mg/dL (9-20); Calcium 9.2 mg/dL (8.4-10.2); Carbon Dioxide 24 mmol/L (22-32); Chloride 102 mmol/L (98-107); Cholesterol 106 mg/dL (140-199); Estimated Glomerular Filt Rate > 60 mL/min (>60); Globulin 2.3 g/dL (1.7-4.1); Glucose 131 mg/dL (80-110); HDL Cholesterol 52 mg/dL (40-60); HEMOLYSIS < 15 (0-50); LDL Cholesterol Calculated 35 mg/dL (<100); Potassium 4.1 mmol/L (3.4-5.1); Sodium 135 mmol/L (137-145); Total Protein 6.7 g/dL (6.3-8.2); Triglycerides 93 mg/dL (35-150)
[2024-06-24 10:59] LABS: Creatinine Urine Random 64.05 mg/dL
[2024-06-24 11:04] LABS: Microalbumin Urine Random 1.9 mg/dL (0-1.6)
[2024-06-24 11:21] LABS: Prostate Specific Antigen Scrn 1.68 ng/mL (0.1-4.0)
[2024-06-24 11:30] LABS: TSH w/ Reflex to FT4 1.21 uIU/mL (0.47-4.68)
[2024-06-25 03:14] LABS: Apolipoprotein B 48 mg/dL (<90)
== END ==
PROVIDERS: PCP Family Medicine; Referring Provider Family Medicine; Visit Provider Family Medicine
DX: E11.69 Type 2 diabetes mellitus with other specified complication (principal); I10 Essential (primary) hypertension; Z12.5 Encounter for screening for malignant neoplasm of prostate; E78.5 Hyperlipidemia, unspecified
CPT/HCPCS: 36415; 80053; 80061; 82043; 82172; 82570; 83036; 84443; 85025; G0103

== ENCOUNTER → 2024-10-07 09:13 | Outpatient (CLI) | payer MEDICARE, SELFPAY ==
[2024-10-07 11:14] LABS: Hemoglobin A1C% w Est Avg Glu 8.3 % (4.0-6.0)
[2024-10-07 11:41] LABS: Alanine Aminotransferase 26 IU/L (<50); Albumin 4.6 g/dL (3.5-5.0); Albumin Globulin Ratio 2.2 (1.0-2.8); Alkaline Phosphatase 69 U/L (38-126); Aspartate Aminotransferase 25 IU/L (17-59); Bilirubin Total 0.5 mg/dL (0.2-1.3); Blood Urea Nitrogen 17 mg/dL (9-20); Calcium 9.5 mg/dL (8.4-10.2); Carbon Dioxide 26 mmol/L (22-32); Chloride 103 mmol/L (98-107); Estimated Glomerular Filt Rate > 60 mL/min (>60); Globulin 2.1 g/dL (1.7-4.1); Glucose 145 mg/dL (80-110); HEMOLYSIS < 15 (0-50); Potassium 4.5 mmol/L (3.4-5.1); Sodium 138 mmol/L (137-145); Total Protein 6.7 g/dL (6.3-8.2)
== END ==
LOC: LAB 09:14
PROVIDERS: PCP Family Medicine; Referring Provider Family Medicine; Visit Provider Family Medicine
DX: E11.69 Type 2 diabetes mellitus with other specified complication (principal); N52.9 Male erectile dysfunction, unspecified
CPT/HCPCS: 36415; 80053; 83036

== ENCOUNTER → 2024-12-19 15:17 | Outpatient (CLI) | payer MEDICARE, SELFPAY ==
--- NOTE | 2024-12-19 15:18 | DI.US.S_ITS ---
PROCEDURE: US SCROTUM INDICATIONS: swelling, lump TECHNIQUE: Real-time scanning was performed of the scrotum and testicles, with image documentation. Color and pulse Doppler interrogation was performed of both testicles. COMPARISON: None. FINDINGS: Right: Testicle is normal in size at 4.2 x 2.4 x 4.0 cm, and homogenous in echotexture. Epididymis is not well seen. Large hydrocele. No varicoceles. Overlying scrotal skin is normal in thickness. Left: Testicle is normal in size at 3.9 x 1.9 x 3.0 cm, and homogeneous in echotexture. Epididymis is normal in overall size and morphology. No hydrocele or varicoceles. Overlying scrotal skin is normal in thickness. Doppler: Color and pulse Doppler demonstrate normal and symmetric arterial flow in both testicles. Right inguinal hernia containing fat measuring 5.6 x 1.2 x 2.5 cm, reducible. IMPRESSION: Large right hydrocele. The palpable region corresponds to the left teste which is displaced by the large right hydrocele. No masses are identified. Reducible right fat containing inguinal hernia peer Dictated by: Darius Danielson M.D. on 12/19/2024 at 16:43 Approved by: Darius Danielson M.D. on 12/19/2024 at 16:45
== END ==
PROVIDERS: PCP Family Medicine; Referring Provider Family Medicine; Visit Provider Family Medicine
DX: N50.89 Other specified disorders of the male genital organs (principal); N43.3 Hydrocele, unspecified; K40.90 Unilateral inguinal hernia, without obstruction or gangrene, not specified as recurrent
CPT/HCPCS: 76870; 93975

== ENCOUNTER → 2025-01-01 08:27 | Outpatient (CLI) | payer MEDICARE, SELFPAY ==
[2025-01-01 09:36] LABS: Hemoglobin A1C% w Est Avg Glu 7.2 % (4.0-6.0)
[2025-01-01 09:40] LABS: Alanine Aminotransferase 22 IU/L (<50); Albumin 4.7 g/dL (3.5-5.0); Albumin Globulin Ratio 2.4 (1.0-2.8); Alkaline Phosphatase 67 U/L (38-126); Aspartate Aminotransferase 23 IU/L (17-59); BUN Creatinine Ratio 31.7 (6-22); Bilirubin Total 0.5 mg/dL (0.2-1.3); Blood Urea Nitrogen 19 mg/dL (9-20); Calcium 9.7 mg/dL (8.4-10.2); Carbon Dioxide 23 mmol/L (22-32); Chloride 105 mmol/L (98-107); Estimated Glomerular Filt Rate > 60 mL/min (>60); Glucose 168 mg/dL (80-110); HEMOLYSIS < 15 (0-50); Potassium 4.5 mmol/L (3.4-5.1); Sodium 138 mmol/L (137-145); Total Protein 6.7 g/dL (6.3-8.2)
== END ==
PROVIDERS: PCP Family Medicine; Referring Provider Family Medicine; Visit Provider Family Medicine
DX: E11.9 Type 2 diabetes mellitus without complications (principal)
CPT/HCPCS: 36415; 80053; 83036

== ENCOUNTER → 2025-02-18 11:31 | Outpatient (CLI) | payer MEDICARE, SELFPAY | PROVIDERS: PCP Family Medicine; Visit Provider Urology | DX: N40.1 Benign prostatic hyperplasia with lower urinary tract symptoms (principal); N13.8 Other obstructive and reflux uropathy | CPT/HCPCS: 87086; 99214 ==

== ENCOUNTER 2025-04-08 10:07 | Day surgery (SDC) | payer MEDICARE, SELFPAY ==
[2025-03-13 09:22] VITALS: BMI 25.1
[2025-04-08] VITALS (7 sets, daily range): BP systolic 125–159; BP diastolic 74–88; PULSE 71–81; RESP 14–21; TEMP 36.2–36.6; O2SAT 97–98; BMI 24.1
[2025-04-08] MEDS: LACTATED RINGERS 1,000 ML 21 ML IV (11:07)
[2025-04-08] MEDS: ACETAMINOPHEN 325 MG TABLET 975 MG PO (11:07)
--- NOTE | 2025-04-08 11:10 | PM.PREOP ---
Pre-operative Note COVID-19 COVID-19 status: Not tested Interval Note History & Physical reviewed/Exam performed by Physician: Yes Changes to H&P: No
[2025-04-08] MEDS: CEFAZOLIN 2 GM/100 ML PREMIX 100 ML IV (11:47)
--- NOTE | 2025-04-08 12:06 | SUR.OPER ---
Supine on padded OR bed, head on pillow, arms secured on padded arm boards at <90 degrees abduction, legs uncrossed, safety belt at thigh, tape over blanket over lower legs.
[2025-04-08] MEDS: BUPIVACAINE 0.5% (PF) 10 ML VIAL INJ (12:12)
[2025-04-08] MEDS: LIDOCAINE 1% 20 ML INJ (12:13)
[2025-04-08] MEDS: BACITRACIN 28 GM OINT 1 APPLIC TOP (12:36)
--- NOTE | 2025-04-08 12:58 | PM.OP.1 ---
Operative Date/Time/Diagnoses Date of procedure: 04/08/25 Time of procedure: 12:00 Pre-op diagnosis: Right hydrocele Post-op diagnosis: same Procedure & Clinicians Procedure: Right hydrocelectomy Same procedure(s) as scheduled: Yes Indications: 69 y/o M noted to have a large right hydrocele that is becoming increasingly bothersome to him. Discussed that his right testicle is otherwise very difficult to definitively palpate, therefore, would not recommend management via percutaneous drainage of his hydrocele in clinic. Discussed that a hydrocele itself does not negatively impact the health of the testicle or its ability to produce testosterone or sperm. Discussed that percutaneous drainage otherwise carries a roughly 50% chance of recurrence. Discussed other treatment options to include observation vs a formal hydrocelectomy. Discussed risks of the procedure to include but not limited to pain, bleeding, infection, 2-3% chance of recurrence, infertility, damage to right spermatic cord leading to testicular atrophy and/or loss, spermatocele formation, poor cosmesis, chronic pain. Surgeon: Mac Lovelace Click Yes if Unassisted: Yes Anesthesia Type: General Operative Notes Findings: Large right hydrocele Closure Type: primary Specimen(s): none sent Applied: none Estimated Blood Loss (mL): 2 Blood products transfused: none Procedure in detail: Patient was identified in the preoperative holding area and consent confirmed. He was then brought to the operating room and placed supine on the operating room table where general anesthesia was induced. All bony prominences were then properly padded and he was prepped and draped in the standard sterile fashion. A surgical timeout was conducted and all members of the operating team were in agreement. A 5cm transverse incision was marked on the right hemiscrotum using a marking pen. This was then incised using a 15 blade. The dissection was then carried down through the subcutaneous tissue and dartos fascia using bovie electrocautery. The hydrocele sac was then delivered onto the operative field through the incision. The testicle was noted to be at the inferior pole of the hydrocele sac. After freeing the hydrocele sac circumferentially from the surrounding dartos fascia, the hydrocele sac was entered using bovie electrocautery and the fluid was manually evacuated. Throughout the entire procedure, care was taken to avoid the right testicle and spermatic cord, which were both preserved at case end. Excess hydrocele sac was then ligated using bovie electrocautery. The edges of tunica vaginalis were then oversewn using 3-0 Vicryl in a running fashion. The scrotum was then inspected for hemostasis, which was noted to be excellent. A ruben drain was then brought out the inferior most portion of his right hemiscrotum and secured to the skin using a 3-0 Nylon stitch. The right testicle was placed back into the left hemiscrotum in correct anatomic position and without twisting of the spermatic cord. The incision was then closed in two separate layers. Dartos was reapproximated using 3-0 Vicryl in a running fashion. The skin edges were then reapproximated using 3-0 Chromic in a running horizontal mattress fashion. Bacitracin was then applied to the incision. A total of 20cc of 1:1 mixture of 1% Lidocaine plain and 0.5% Marcaine plain was used for incision and cord block anesthetic. Fluff gauze and scrotal support was then placed over the incision. Anesthesia was reversed, he was extubated in the OR and transferred to the PACU in stable condition for recovery. Complications: none Post-operative Condition: stable Disposition: PACU Plan for aftercare: Discharge home from PACU. Will return to Urology clinic at 1300 on 11 April 2025 to have his ruben drain removed.
== END 2025-04-08 13:55 | disposition home or self-care (01) ==
PROVIDERS: PCP Family Medicine; Referring Provider Urology; Visit Provider Urology
PROC: (CPT 55040; principal; 2025-04-08 11:45)
DX: N43.3 Hydrocele, unspecified (principal); I10 Essential (primary) hypertension; E78.5 Hyperlipidemia, unspecified; E11.69 Type 2 diabetes mellitus with other specified complication; N40.1 Benign prostatic hyperplasia with lower urinary tract symptoms; N13.8 Other obstructive and reflux uropathy; Z79.84 Long term (current) use of oral hypoglycemic drugs; Z79.82 Long term (current) use of aspirin
CPT/HCPCS: 55040; 82962; J0690; J1100; J1885; J2405; J2704; J3010

== ENCOUNTER → 2025-04-14 09:04 | Outpatient (CLI) | payer MEDICARE, SELFPAY ==
[2025-04-14 09:53] LABS: Hemoglobin A1C% w Est Avg Glu 7.3 % (4.0-6.0)
[2025-04-14 10:01] LABS: Alanine Aminotransferase 23 IU/L (<50); Albumin 4.4 g/dL (3.5-5.0); Albumin Globulin Ratio 2.0 (1.0-2.8); Alkaline Phosphatase 89 U/L (38-126); Blood Urea Nitrogen 16 mg/dL (9-20); Calcium 9.3 mg/dL (8.4-10.2); Carbon Dioxide 28 mmol/L (22-32); Chloride 101 mmol/L (98-107); Estimated Glomerular Filt Rate > 60 mL/min (>60); Globulin 2.2 g/dL (1.7-4.1); Glucose 183 mg/dL (70-99); HEMOLYSIS < 15 (0-50); Potassium 4.4 mmol/L (3.4-5.1); Sodium 137 mmol/L (137-145); Total Protein 6.6 g/dL (6.3-8.2)
== END ==
PROVIDERS: PCP Family Medicine; Referring Provider Family Medicine; Visit Provider Family Medicine
DX: E11.69 Type 2 diabetes mellitus with other specified complication (principal)
CPT/HCPCS: 36415; 80053; 83036

== ENCOUNTER → 2025-07-14 08:47 | Outpatient (CLI) | payer MEDICARE, SELFPAY ==
[2025-07-14 09:31] LABS: Add Manual Diff / Slide Review NO; Hematocrit 44.5 % (41-53); Hemoglobin 15.0 g/dL (13.5-17.5); Lymphocytes Absolute Auto 1300 /uL (1100-4500); Mean Corpuscular HGB Conc 33.7 % (30-36); Mean Corpuscular Hemoglobin 29.6 PG (26-34); Mean Corpuscular Volume 88.1 fL (80-100); Platelet Count 202 X10^3/uL (150-400)
[2025-07-14 09:41] LABS: Hemoglobin A1C% w Est Avg Glu 7.5 % (4.0-6.0)
[2025-07-14 10:04] LABS: Alanine Aminotransferase 26 IU/L (<50); Albumin 4.8 g/dL (3.5-5.0); Albumin Globulin Ratio 1.9 (1.0-2.8); Alkaline Phosphatase 90 U/L (38-126); Blood Urea Nitrogen 18 mg/dL (9-20); Calcium 9.4 mg/dL (8.4-10.2); Carbon Dioxide 25 mmol/L (22-32); Chloride 99 mmol/L (98-107); Cholesterol 120 mg/dL (140-199); Estimated Glomerular Filt Rate > 60 mL/min (>60); Globulin 2.5 g/dL (1.7-4.1); Glucose 174 mg/dL (70-99); HDL Cholesterol 59 mg/dL (40-60); HEMOLYSIS < 15 (0-50); Potassium 4.5 mmol/L (3.4-5.1); Sodium 136 mmol/L (137-145); Total Protein 7.3 g/dL (6.3-8.2); Triglycerides 160 mg/dL (35-150)
[2025-07-14 10:08] LABS: Microalbumi Creatinin Ratio Ur 29.0 ug/mg CR (<30)
[2025-07-14 10:29] LABS: TSH w/ Reflex to FT4 1.71 uIU/mL (0.47-4.68)
== END ==
PROVIDERS: PCP Family Medicine; Referring Provider Family Medicine; Visit Provider Family Medicine
DX: E11.9 Type 2 diabetes mellitus without complications (principal); Z12.5 Encounter for screening for malignant neoplasm of prostate; N40.1 Benign prostatic hyperplasia with lower urinary tract symptoms; N13.8 Other obstructive and reflux uropathy; E78.2 Mixed hyperlipidemia; I10 Essential (primary) hypertension
CPT/HCPCS: 36415; 80053; 80061; 82043; 82570; 83036; 84443; 85025; G0103